=== PATIENT | male | born 1940 | race African-American/Black ===

== ENCOUNTER 2019-09-06 13:37 | Emergency (ER) | payer OTHER ==
[~2019-09-06] VITALS: Ht 170.2 cm; Wt 55.0 kg
[2019-09-06] MEDS ORDERED: SODIUM CHLORIDE 0.9% 1,000ML IVBOLUS ONE (14:00)
[2019-09-06] MEDS ORDERED: SODIUM CHLORIDE FLUSH 10ML SYR IVF ONE (14:00)
[2019-09-06 14:43] LABS: BASOPHILS # (AUTO) 0.02 x10^3/uL (0-0.1); BASOPHILS % (AUTO) 0 % (0-1); EOSINOPHILS % (AUTO) 0 % (1-7); LYMPHOCYTES # (AUTO) 0.63 x10^3/uL (1-3.4); LYMPHOCYTES % (AUTO) 9 % (22-44); MD NO; MEAN CORPUSCULAR HEMOGLOBIN 33.2 pg (27.5-34.5); MEAN CORPUSCULAR HGB CONC 32.8 g/dL (33.2-36.2); MEAN CORPUSCULAR VOLUME 101.2 fL (81-97); MEAN PLATELET VOLUME 6.8 fL (7.4-10.4); MONOCYTES # (AUTO) 0.62 x10^3/uL (0.2-0.8); MONOCYTES % (AUTO) 9 % (2-9); NEUTROPHILS # (AUTO) 5.75 x10^3/uL (1.8-6.8); NEUTROPHILS % (AUTO) 82 % (42-75); PLATELET COUNT 299 x10^3/uL (130-400); RED BLOOD COUNT 2.29 x10^6/uL (4.38-5.82); RED CELL DISTRIBUTION WIDTH 15.9 % (9.4-14.8)
[2019-09-06 14:51] LABS: ALANINE AMINOTRANSFERASE 8 U/L (12-78); ALBUMIN 2.4 g/dL (3.4-5.0); ANION GAP 7 mmol/L (5-15); CALCIUM 8.4 mg/dL (8.5-10.1); CHLORIDE 105 mmol/L (98-107); CREATININE 0.59 mg/dL (0.7-1.3)
[2019-09-06 14:56] LABS: ALKALINE PHOSPHATASE 81 U/L (45-117); BILIRUBIN,TOTAL 0.5 mg/dL (0.2-1.0); TOTAL PROTEIN 5.9 g/dL (6.4-8.2); TROPONIN I < 0.015 ng/mL (0.000-0.045)
--- NOTE | 2019-09-06 15:01 | NUR ---
PT DISAGREEABLE WITH CARE, REFUSING MOST INTERVENTIONS. DAUGHTER/POA MICHELLE LIVES IN [facility]. CONTACTED FOR POA PAPERWORK. WILL BE EMAILING IT SHORTLY. MICHELLE PRASHANT: [phone] DIMPLE BRANDT - SON: [phone]
--- NOTE | 2019-09-06 15:05 | NUR ---
RECEIVED REPORT FROM TOPHER. PT UPRIGHT ON GURNEY AWAKE & COMFORTABLE REFUSING EKG, PIV & IVF- DR ZUNIGA AWARE, COMFORT MEASURES PROVIDED, CALL LIGHT WITHIN REACH.
--- NOTE | 2019-09-06 16:01 | NUR ---
PT UPRIGHT ON GURNEY AWAKE & COMFORTABLE, CONTINUES TO REFUSE FURTHER CARE- DR ZUNIGA AWARE, RESPONDS APPROP TO STAFF, NAD, COMFORT MEASURES PROVIDED, CALL LIGHT WITHIN REACH.
[2019-09-06] MEDS ORDERED: NEOSPORIN OINT. PKT 1 PACKET ONE (16:28)
--- NOTE | 2019-09-06 16:38 | NUR ---
REPORT GIVEN TO MARY FROM RAQUEL POLK RN TO ARRANGE TRANSPORT BACK TO FACILITY.
--- NOTE | 2019-09-06 17:04 | NUR ---
PT CONTINUES TO REFUSE TO SIGN ANY PAPERWORK (DC INSTR, REG FORMS, TRANSFER CONSENT FORM), AWAITING TRANSPORT BACK TO [place].
--- NOTE | 2019-09-06 17:04 | NUR ---
(PREVIOUS NOTE CHARTED UNDER WRONG USER): PT CONTINUES TO REFUSE TO SIGN ANY PAPERWORK (DC INSTR, REG FORMS, TRANSFER CONSENT FORM), AWAITING TRANSPORT BACK TO [address].
[2019-09-06 18:01] VITALS: BP 118/79
--- NOTE | 2019-09-06 18:01 | NUR ---
PT MOSTLY SLEEPING UPRIGHT ON [facility] AWAITING TRANSPORT BACK TO [place] AT ~1815.
--- NOTE | 2019-09-06 18:51 | NUR ---
REPORT GIVEN TO KAI
== END 2019-09-06 19:48 | disposition home or self-care (01) ==
LOC: ED 16:12
DX: S00.01XA Abrasion of scalp, initial encounter (principal); D53.9 Nutritional anemia, unspecified; W19.XXXA Unspecified fall, initial encounter; Y93.89 Activity, other specified; Y92.89 Other specified places as the place of occurrence of the external cause; Y99.8 Other external cause status
CPT/HCPCS: 36415; 71045; 80053; 83880; 84484; 85025; 99284